=== PATIENT | male | born 1975 | race Two or more races ===

== ENCOUNTER 2025-06-08 11:37 | Emergency (ER) | payer OTHER ==
[~2025-06-08] VITALS: Ht 170.2 cm; Wt 72.0 kg
[2025-06-08 11:52] VITALS: TEMP 98
[2025-06-08 13:02] LABS: PLATELET COUNT (AUTO) 228 K/uL (150-450); RED BLOOD CELL COUNT(AUTO) 6.25 MIL/uL (4.50-5.90); RED CELL DISTRIBUTION WIDTH 14.1 % (11.5-14.5); WHITE BLOOD COUNT (AUTO) 5.9 K/uL (4.5-11.0)
[2025-06-08 13:22] LABS: CALCIUM, TOTAL 9.2 mg/dL (8.8-10.5); CREATININE 0.71 mg/dL (0.60-1.30); GLOMERULAR FILTR. RATE CALC > 60 mL/min (>60); GLUCOSE,RANDOM 101 mg/dL (70-110); SODIUM SERUM 138 mmol/L (136-145); UREA NITROGEN, BLOOD 6 mg/dL (7-18)
[2025-06-08 13:27] LABS: TROPONIN I-HIGH SENSITIVITY 6 ng/L (<76)
[2025-06-08 13:42] LABS: APPEARANCE,URINE CLEAR (CLEAR); GLUCOSE, URINE (UA) NEGATIVE (NEGATIVE); LEUKOCYTE ESTERASE ,URINE NEGATIVE (NEGATIVE); NITRATE,URINE NEGATIVE (NEGATIVE); OCCULT BLOOD,URINE NEGATIVE (NEGATIVE); SPECIFIC GRAVITIY, URINE 1.007 (1.003-1.030)
[2025-06-08 15:52] VITALS: BP 144/88; PULSE 62; RESP 18; O2SAT 99
== END 2025-06-08 16:39 ==
LOC: EMS 11:41
DX: I10 Essential (primary) hypertension (principal); Z65.3 Problems related to other legal circumstances
CPT/HCPCS: 71045; 80048; 81003; 83880; 84484; 85025; 85610; 85730; 93005; 93306; 99285; 36415-L1; 36415-TC